=== PATIENT | male | born 1975 ===

== ENCOUNTER 2021-05-02 06:41 | Emergency (ER) | payer SELFPAY ==
[2021-05-02] MEDS ORDERED: ACETAMINOPHEN 500 MG TAB PO NR (08:43)
[2021-05-02] MEDS ORDERED: BUTALB/ACETAMINOPHEN/CAFFEINE TAB PO STA (08:43)
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
[2021-05-02] MEDS ORDERED: ONDANSETRON 4 MG ODT TAB PO NR (09:00)
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
[2021-05-02 12:43] VITALS: BP 122/74
== END 2021-05-02 12:42 | disposition home or self-care (01) ==
LOC: EDBD → ED 06:41
DX: R51.9 Headache, unspecified (principal); M54.2 Cervicalgia; M25.511 Pain in right shoulder; M79.632 Pain in left forearm; V89.2XXA Person injured in unspecified motor-vehicle accident, traffic, initial encounter; Y93.89 Activity, other specified; Y92.488 Other paved roadways as the place of occurrence of the external cause; Y99.8 Other external cause status
CPT/HCPCS: 70450; 72125; 99284; J3490; Q0162